=== PATIENT | female | born 1995 | race Caucasian/White ===

== ENCOUNTER 2021-10-25 09:39 | Outpatient (CLI) | payer OTHER, SELFPAY ==
--- NOTE | ~2021-10-25 | MR_ITS ---
EXAMINATION: MR brain/brain stem wo/w con DATE: 10/25/2021 10:32 INDICATION: Hyperprolactinemia. Headache. Dizziness. TECHNIQUE: Magnetic resonance imaging (MRI) of the brain and brainstem was performed without and with 15 mL MultiHance intravenous contrast. COMPARISON: Head CT 03/13/2014 FINDINGS: The pituitary demonstrates a height of 6 mm and concave superior margin. The infundibulum i s at the midline. There is no intracranial hemorrhage, acute infarction, or abnormal intracranial mas s lesion. The ventricles are normal in size. The paranasal sinuses are clear. The orbits are normal. The mastoid air cells are normal. IMPRESSION: 1. Normal brain. Normal pituitary. Reviewed, dictated and finalized at location A.
== END 2021-10-25 09:40 | disposition home or self-care (01) ==
LOC: ANHIMG 09:44
PROVIDERS: PCP Internal Medicine; Visit Provider Obstetrics & Gynecology
DX: R79.89 Other specified abnormal findings of blood chemistry (principal)
CPT/HCPCS: 70553; A9577

== ENCOUNTER 2023-03-03 18:42 | Emergency (ER) | payer OTHER, SELFPAY ==
--- NOTE | 2023-03-03 18:52 | PC.NURSE ---
patient changed her mind and decided she did not want to be seen in the ED
== END 2023-03-03 18:45 | disposition left against medical advice (07) ==
PROVIDERS: PCP Internal Medicine
DX: Z53.21 Procedure and treatment not carried out due to patient leaving prior to being seen by health care provider (principal)
CPT/HCPCS: 99199